=== PATIENT | female | born 1980 | race Caucasian/White ===

== ENCOUNTER 2017-12-04 09:43 | Emergency (ER) | payer MEDICARE, MEDICAID ==
[2017-12-04] MEDS ORDERED: MORPHINE SULFATE 10 MG/ML INJ IM ONE (10:18)
--- NOTE | 2017-12-04 10:53 | ER Document Report ---
ED General - General Chief Complaint: Knee Pain Stated Complaint: RIGHT KNEE PAIN Time Seen by Provider: 12/04/17 09:54 Mode of Arrival: Medic Information source: Patient, Relative, [facility] Records Notes: 37-year-old female who is wheelchair-bound presents with complaint of right leg pain that occurred just prior to arrival when the patient was transferring from the toilet to her chair when she fell striking her leg against the floor. Patient denies any head injury, loss of consciousness. Her pain is currently greatest from her right knee down. Patient denies any preceding dizziness, shortness of breath, chest pain. - HPI Onset: Just prior to arrival Onset/Duration: Sudden Quality of pain: Throbbing Severity: Moderate Associated symptoms: None Exacerbated by: Movement Relieved by: Remaining still Similar symptoms previously: No Recently seen / treated by doctor: Yes - Related Data Allergies/Adverse Reactions: No Known Allergies Allergy (Unverified 12/04/17 10:02) Past Medical History - General Information source: Patient - Social History Smoking Status: Never Smoker Chew tobacco use (# tins/day): No Frequency of alcohol use: Occasional Drug Abuse: None Lives with: Family Family History: Reviewed & Not Pertinent Patient has suicidal ideation: No Patient has homicidal ideation: No Renal/ Medical History: Denies: Hx Peritoneal Dialysis Musculoskeletal Medical History: Reports Hx Arthritis Past Surgical History: Reports: Hx Abdominal Surgery Review of Systems - Review of Systems Notes: REVIEW OF SYSTEMS: CONSTITUTIONAL : Denies fever, chills, or sweats. Denies recent illness. Denies weight loss, recent hospitalizations. EENT: Denies visual changes, eye pain. Denies sore throat, oral lesions, difficulty swallowing. CARDIOVASCULAR: Denies chest pain. Denies palpitations. Denies lower extremity edema. RESPIRATORY: Denies cough. Denies shortness of breath, wheezing. GASTROINTESTINAL: Denies abdominal pain or distention. Denies nausea, vomiting , or diarrhea. Denies blood in vomitus, stools, or per rectum. Denies black, tarry stools. Denies constipation. GENITOURINARY: Denies difficulty urinating, painful urination, frequency, blood in urine, or vaginal discharge. MUSCULOSKELETAL: Denies back or neck pain or stiffness. SKIN: Denies rash, lesions or sores. HEMATOLOGIC : Denies easy bruising or bleeding. LYMPHATIC: Denies swollen glands. NEUROLOGICAL: Denies confusion or altered mental status. Denies loss of consciousness. Denies dizziness or lightheadedness. Denies headache. Denies weakness or paralysis. Denies problems difficulty with ambulation, slurred speech. Denies sensory loss, numbness, or tingling. Denies seizures. PSYCHIATRIC: Denies anxiety or stress. Denies depression, suicidal ideation, or homicidal ideation. Denies visual or auditory hallucinations. Physical Exam - Vital signs Vitals: Temp Pulse Resp BP Pulse Ox 98.8 F 95 20 124/82 96 12/04/17 10:06 12/04/17 10:06 12/04/17 10:06 12/04/17 10:06 12/04/17 10:06 Interpretation: Normal - Notes Notes: PHYSICAL EXAMINATION: GENERAL: Morbidly obese, wheelchair-bound well-nourished and in no acute distress. GCS 15 HEAD: Atraumatic, normocephalic. EYES: Pupils equal round and reactive to light, extraocular movements intact, sclera anicteric, conjunctiva are normal. ENT: Nares patent, oropharynx clear without exudates. Moist mucous membranes. No hemanotympanum . No blood in nares. No dental fracture NECK: Normal range of motion, supple without lymphadenopathy. Trachea midline LUNGS: Breath sounds clear to auscultation bilaterally and equal. No wheezes rales or rhonchi. HEART: Regular rate and rhythm without murmurs. Pulses intact all throughout. ABDOMEN: Soft, nontender, nondistended abdomen. No guarding, no rebound. No masses appreciated. Musculoskeletal: Pain with palpation to the right hip. Right knee pain with passive range of motion. No obvious deformity. DP, PT pulse intact. Cap refill less than 2 seconds. Patient able to wiggle her toes. NEUROLOGICAL: Cranial nerves grossly intact. Normal speech, normal gait. Normal sensory, motor, and reflex exams. PSYCH: Normal mood, normal affect. SKIN: Warm, No active bleeding U/S fast exam notes no obvious free fluid but this is a nondiagnostic evaluation Course - Re-evaluation Re-evalutation: Knee X-Ray 12/04/17 09:54 IMPRESSION: Osteopenia. Acute fracture of the proximal tibia. Hip/Pelvis X-Ray 12/04/17 09:55 IMPRESSION: Chronic dislocation of the left hip. No acute findings on the right. Tibia/Fibula X-Ray 12/04/17 10:18 IMPRESSION: Proximal tibia fracture. Osteopenia. 37-year-old female presents after a slip and fall when transferring from the toilet to her wheelchair. Patient is wheelchair bound the majority of the time. She denies any head injury. Patient's exam is for pain along the right hip and right lower extremity with some mild swelling of the anterior thomas. Patient found to have an acute fracture of the proximal tibia. As for orthopedic recommendations a posterior leg splint was placed. Patient does not live locally and states her mother is flying in to drive her home where she will see her normal orthopedic doctor. 12/04/17 12:[address] Barney orthopedic surgeon on-call who reviewed the films and does not feel that the patient needs a CT of her lower extremity to assess for tibial plateau fracture. He advises splint and follow-up with her regular orthopedic surgeon. 12/05/17 11:47 Patient was evaluated and treated as appropriate for the patient's presenting symptoms and complaint, with consideration of any critical or life threatening conditions that may be associated with their obtained history and exam as noted above. All results were discussed with patient and provided copies of her imaging. Patient provided the opportunity to ask questions, and express concerns. Patient was educated on treatments based on their presumed diagnosis as noted above. At this time we will discharge the patient with return precautions and follow-up recommendations. Verbal discharge instructions given a the bedside. Medication warnings reviewed. Patient is in agreement with this plan and has verbalized understanding of return precautions. After careful consideration I feel that that patient can be safely discharged from the emergency department, they were advised to followup with a primary care physician in 2-3 days. Dictation on this chart was performed using voice recognition software and may result in unintended grammatical, spelling, syntax or errors. - Vital Signs Vital signs: Temp Pulse Resp BP Pulse Ox 98.6 F 90 20 122/76 100 12/04/17 15:01 12/04/17 15:01 12/04/17 15:01 12/04/17 15:01 12/04/17 15:01 - Diagnostic Test Radiology reviewed: Image reviewed, Reports reviewed Procedures - Immobilization Right Leg Time completed: 11:48 Pre-Proc Neuro Vasc Exam: Normal Immobilizer type: Short Leg Posterior Performed by: Provider Post-Proc Neuro Vasc Exam: Normal Alignment checked and good: Yes Discharge - Discharge Clinical Impression: Chronic hip dislocation Fall Qualifiers: Encounter type: initial encounter Qualified Code(s): W19.XXXA - Unspecified fall, initial encounter Fracture of tibia, proximal, right, closed Qualifiers: Encounter type: initial encounter Fracture morphology: unspecified fracture morphology Qualified Code(s): S82.101A - Unspecified fracture of upper end of right tibia, initial encounter for closed fracture Osteopenia Qualifiers: Osteopenia location: unspecified Qualified Code(s): M85.80 - Other specified disorders of bone density and structure, unspecified site Condition: Good Disposition: HOME, SELF-CARE Instructions: Ice & Elevation ([facility]), Oral Narcotic Medication ([facility]), Osteoporosis ([facility]), Sprained Knee ([facility]), Fractured Tibia ([facility]) Additional Instructions: Your imaging today showed a fracture of your right lower extremity. Please remain in your splint until seen by your orthopedic surgeon. Please use your wheelchair until seen by your orthopedic surgeon. Please return if you notice increased pain and or swelling of the leg. Follow up with your [id number] hours for further care or return to the ED IMMEDIATELY if symptoms worsen or you have any concerns. If you cannot afford to follow up with your primary care physician a list of low cost clinics have been provided at the end of your discharge papers as well. Most prescribed medications have multiple side effects. The safest thing to do is when filling your prescription speak to your pharmacist regarding possible interactions with your normal home medications and over the counter medications such as Ibuprofen, Tylenol, Benadryl. If you experience any symptoms that cause you discomfort or concern you should discontinue the medication immediately and return to the emergency room or call your primary care physician.
--- NOTE | 2017-12-04 11:35 | RADIOLOGY REPORT (SQ) ---
EXAM DESCRIPTION: KNEE RIGHT 2 VIEWS COMPLETED DATE/TIME: 12/04/2017 11:13 am REASON FOR STUDY: pain COMPARISON: None. NUMBER OF VIEWS: Two views. TECHNIQUE: AP and lateral radiographic images acquired of the right knee. LIMITATIONS: None. FINDINGS: MINERALIZATION: Osteopenia. BONES: There is a transverse fracture of the proximal tibia. Mild irregularity of the proximal fibul a probably related to old injury. There are postsurgical changes in the distal femur. JOINT: No effusion. SOFT TISSUES: No soft tissue swelling. No radio-opaque foreign body. OTHER: No other significant finding. IMPRESSION: Osteopenia. Acute fracture of the proximal tibia. TECHNICAL DOCUMENTATION: JOB ID: [id number] [employer]- All Rights Reserved Reading location - IP/workstation name: [email or web address]
--- NOTE | 2017-12-04 11:36 | RADIOLOGY REPORT (SQ) ---
EXAM DESCRIPTION: TIBIA FIBULA RIGHT COMPLETED DATE/TIME: 12/04/2017 11:13 am REASON FOR STUDY: fall COMPARISON: None. NUMBER OF VIEWS: Two views. TECHNIQUE: Two radiographic images acquired of the right tibia and fibula to include the knee and an kle in at least one projection. LIMITATIONS: None. FINDINGS: MINERALIZATION: Osteopenia. BONES: Proximal tibia fracture is again noted. SOFT TISSUES: No obvious swelling or foreign body. OTHER: No other significant finding. IMPRESSION: Proximal tibia fracture. Osteopenia. TECHNICAL DOCUMENTATION: JOB ID: [id number] [employer]- All Rights Reserved Reading location - IP/workstation name: [email or web address]
--- NOTE | 2017-12-04 11:37 | RADIOLOGY REPORT (SQ) ---
EXAM DESCRIPTION: HIP RIGHT AP/LATERAL COMPLETED DATE/TIME: 12/04/2017 11:13 am REASON FOR STUDY: fall COMPARISON: None. NUMBER OF VIEWS: Two views. TECHNIQUE: AP and frog-leg view of the right hip. LIMITATIONS: None. FINDINGS: MINERALIZATION: Osteopenia. RIGHT HIP: No fracture or dislocation. No worrisome bone lesions. No contour deformity. No joint sp george narrowing. OPPOSITE HIP: There is a chronic dislocation of the left hip. SOFT TISSUES: No findings. OTHER: No other significant finding. IMPRESSION: Chronic dislocation of the left hip. No acute findings on the right. TECHNICAL DOCUMENTATION: JOB ID: [id number] [employer]- All Rights Reserved Reading location - IP/workstation name: [email or web address]
[2017-12-04] MEDS ORDERED: OXYCODONE-ACETAMINOPHEN 5-325 MG TABLET PO ONE (12:55)
[2017-12-04] MEDS ORDERED: HYDROCODONE/ACETAMINOPHEN 5-325 MG (6 TAB/ER DISP) PO PRN (14:08)
[2017-12-04] MEDS ORDERED: ONDANSETRON 4 MG TAB.RAPDIS PO ONE (14:29)
[2017-12-04] MEDS ORDERED: ONDANSETRON 4 MG TAB.RAPDIS ONE (14:31)
[2017-12-04 15:05] VITALS: BP 122/76
== END 2017-12-04 15:01 | disposition home or self-care (01) ==
LOC: ER 09:43
PROC: 2W3QX1Z Immobilization of Right Lower Leg using Splint (ICD-10-PCS; principal; 2017-12-04)
DX: S82.101A Unspecified fracture of upper end of right tibia, initial encounter for closed fracture (principal); M85.80 Other specified disorders of bone density and structure, unspecified site; M24.451 Recurrent dislocation, right hip; M25.561 Pain in right knee; M79.604 Pain in right leg; W18.11XA Fall from or off toilet without subsequent striking against object, initial encounter
CPT/HCPCS: 99284; 73502; 73560; 73590; 29515; A9270 ×3; J2270; S0119